=== PATIENT | female | born 1965 | race Caucasian/White ===

== ENCOUNTER → 2018-05-27 | Outpatient (CLI) | payer OTHER ==
--- NOTE | 2018-05-27 22:00 | CONS ---
Assessment/Plan Assessment/Plan Hospital Course (Demo Recall) This is a 52-year-old female who is 8 months of worsening right knee pain. On examination the patient has medial meniscus tear as well as patellofemoral syndrome. MRI confirms the medial meniscus tear. Plan: Authorization for physical therapy for patellofemoral syndrome and medial meniscus tear. Authorization for right knee steroid injection for medial meniscus tear. F/u for steroid injection Consultation Date/Type/Reason Admit Date/Time Date of Consultation: May 27, 2018 Reason for Consultation Right knee pain Date/Time of Note DATE: 05/27/18 TIME: 21:28 Hx of Present Illness Is a 52-year-old female with a chief complaint of right knee pain. The pain began approximately 8 months ago. Patient is very active and hikes, dances, walks. the patients pain is in the medial and anterior aspect of the right knee. Pain is not radiating to the lower leg. She does have history of back pain. The pain is rated as a 8/10 and is described as sharp, electrical, and burning. At times the pain radiates to the thigh. Patient denies complaints of numbness or tingling. The pain is exacerbated by climbing stairs and ambulation. Pain is not relieved by NSAID's. Patient has been taking naproxen on a p.r.n. basis as well as using ice. Weightbearing activities as well as sitting down for long periods of time increases pain. Duration: 8 months Injury: No specific injury Walking tolerance: Limited to 1 mile compared to 5 miles prior Limp: Occasionally Support: No Swelling: No Crepitation: Yes Instability: No Stairs: Uses normally Physical Therapy: No Injections: No NSAIDs: Naproxen, no relief Prior surgery: No Back pain: Yes Hip pain: No Risk of AVN : yes Patient denies fever, chills, shortness of breath, chest pain, nausea/vomiting, constipation, diarrhea, numbness, and tingling. Past Medical History HIV Depression Chronic kidney disease stage III Family History Significant Family History: no pertinent family hx Social History Alcohol Use: occasionally Smoking Status: Smoker,current status unk Drug Use: none Exam/Review of Systems Exam Vitals Weight: 156 lbs Height: 5 feet 6 inches Heart Rate: 65 Blood Pressure: 139/91 Exam General: Alert, oriented x3. No Acute Distress. Heart: Regular rate and rhythm. Lungs: No respiratory distress. No accessory muscle use. Musculoskeletal: Right Knee This is a well developed female who is alert, oriented times three and in no apparent distress. Skin is intact over the right knee as well as the lower extremity with no abrasions, lacerations, or ulcerations. Observation of the patient's gait reveals an antalgic gait with No thrust. Frontal plane alignment is slight varus. No knee effusion. There is pain on palpation of medial joint line. The patient demonstrates grinding anteriorly with ROM. Range of motion: 3 extension to approximately 130 degrees of flexion. Pain with hyperextension. Collateral ligament testing reveals no instability with varus or valgus stress at 0 and 30 degrees of flexion. Negative Reynaldo's and negative posterior drawer. Neurovascularly intact with 5/5 EHL/tibialis anterior/gastroc. Sensation intact to light touch in a sural, saphenous, deep peroneal, superficial peroneal, medial and lateral plantar nerve distribution. Palpable, symmetric dorsalis pedis and posterior tibial pulses in both lower extremities. Hip examination normal. Imaging Imaging The patient received a standard set of films today that were personally reviewed. Imaging included a standing bilateral knee AP, PA flexion, merchant views and a dedicated lateral of the affected knee: There is slight varus alignment of the knee. There is mild loss of joint space medial compartment(s). There is no osteophyte formation. There is slight subchondral sclerosis. There are no subchondral cysts. Degenerative changes are most severe in the medial compartment(s). Shallow trochlear groove. MRI of the right knee obtained on 05/04/2018 was personally reviewed. Demonstrates a complex tear in the mid zone posterior horn of the medial meniscus with a horizontal tear within the posterior horn. There is a joint effusion. There is mild chondromalacia medial compartment otherwise minimal degenerative changes in the knee. Cruciate and collateral ligaments are intact. JABARI JONES MD May 27, 2018 21:39
--- NOTE | 2018-05-28 08:37 | RADRPT ---
PROCEDURE: Bilateral knee series CLINICAL INDICATION: Pain TECHNIQUE: AP weightbearing, PA weightbearing, and lateral weightbearing views of the right left kn ees as well as sunrise views of the right left knees were obtained. COMPARISON: None FINDINGS: Mild degenerate joint disease right knee and minimal degenerate joint disease left knee worse involvi ng NO compartments. No evidence of acute fractures or dislocations. No focal bony blastic or lytic le sions. Small right and left suprapatellar knee joint effusions. Soft tissues are otherwise unremarkab le. IMPRESSION: 1. Degenerative joint disease of both knees worse on the right as described above without acute frac tures or dislocations. 2. Bilateral small suprapatellar knee joint effusions. RPTAT:AAJJ Physician Felicita Date Time Electronically viewed and signed by Grabiel Lala Physician on 05/28/2018 08:36 /
== END | disposition home or self-care (01) ==
LOC: HKI 15:20
PROVIDERS: ATTEND Orthopaedic Surgery Adult Reconstructive Orthopaedic Surgery
DX: M25.561 Pain in right knee (principal); N18.3 Chronic kidney disease, stage 3 (moderate); F32.9 Major depressive disorder, single episode, unspecified; F17.210 Nicotine dependence, cigarettes, uncomplicated
CPT/HCPCS: 73564; Z7500; G0463

== ENCOUNTER → 2018-06-19 | Outpatient (CLI) | payer OTHER ==
--- NOTE | 2018-06-19 16:04 | CONS ---
Consult Date/Type/Reason Admit Date/Time Initial Consult Date Date/Time of Note DATE: 06/19/18 TIME: 16:02 Subjective 52-year-old female follows up today for right knee medial meniscus tear. At last visit discussed steroid injection and physical therapy for conservative treatment. Authorization has been submitted and given for right knee steroid injection. Patient denies any changes in her symptoms. Denies any numbness and tingling. States she would like to go back to dancing and her other active activities such as hiking and walking. Objective Vitals Weight: 152 pounds Height: 5 feet 6 inches Heart Rate: 76 Blood Pressure: 121/84 Exam General: Awake, alert, in no acute distress, pleasant and cooperative Heart: regular rhythm Lungs: breathing comfortably, no tachypnea or dyspnea MUSCULOSKELETAL: Right lower extremity: Skin intact. No erythema Sensation intact to light touch in a sural, saphenous, deep peroneal, superficial peroneal, medial and lateral plantar nerve distribution. Motor is intact, patient able to dorsiflex and plantarflex ankle and extend and flex great toe. Dorsalis Pedis pulse +2, Brisk capillary refill. Compartments are soft. Calves non-tender to palpation bilaterally. Assessment/Plan Hospital Course (Demo Recall) 52-year-old female sent to clinic today for right knee steroid injection for med ial meniscus tear. Plan: Right knee steroid injection Physical therapy Low impact activities Ice Assessment/Plan (Daily) Right knee steroid injection procedure: Risks and benefits of steroid injection reviewed with patient. The risks include infection, failure, pain, swelling, nerve/tendon/ligament damage. The patient verbalized understanding and verbal consent was obtained prior to procedure. The right knee was prepped in a sterile fashion with alcohol and betadine the site of injection was confirmed. Lateral approach was used. The skin and capsule was anesthetized with 3mL 1% lidocaine. The right knee was injected with 2mL 1% lidocaine, 2mL 0.25% bupivacaine, 40mg Depo-Medrol. Injection flowed freely. Good hemostasis was achieved and no complications noted. The patient tolerated the procedure well. Limit activity and ice for 24-48 hours JABARI JONES MD Jun 19, 2018 16:04
== END | disposition home or self-care (01) ==
LOC: HKI 14:58
PROVIDERS: ATTEND Orthopaedic Surgery Adult Reconstructive Orthopaedic Surgery
DX: M23.203 Derangement of unspecified medial meniscus due to old tear or injury, right knee (principal)
CPT/HCPCS: 20610; Z7500; Z7610; G0463